=== PATIENT | female | born 1980 | race Caucasian/White ===

== ENCOUNTER 2022-04-23 04:16 | Day surgery (SDC) | payer BC ==
[2022-04-22 14:00] VITALS: BMI 25.4
[2022-04-23] MEDS ORDERED: PROPOFOL 20 ML ONE ×2 (11:48→12:45)
[2022-04-23] MEDS ORDERED: MIDAZOLAM HCL 2 MG/2 ML SINGLE DOSE VIAL ONE (11:48)
[2022-04-23] MEDS ORDERED: ROCURONIUM BROMIDE 100 MG/10 ML VIAL ONE (11:48)
[2022-04-23] MEDS ORDERED: SUGAMMADEX SODIUM 200 MG/2 ML VIAL ONE (12:50)
[2022-04-23] MEDS ORDERED: ceFAZolin SODIUM 1 GM VIAL IVPB ONE (13:45)
[2022-04-23] MEDS ORDERED: ONDANSETRON 4 MG/2 ML VIAL IVPUSH PRN (14:42)
[2022-04-23] MEDS ORDERED: FENTANYL CITRATE/PF 50 MCG/ML VIAL ONE ×3 (14:48→16:00)
[2022-04-23] MEDS ORDERED: oxyCODONE HCL 5 MG TABLET PO PRN (16:51)
[2022-04-23] MEDS ORDERED: ONDANSETRON 4 MG/2 ML VIAL ONE (17:33)
[2022-04-23 18:59] VITALS: BP 142/68; PULSE 60; TEMP 98
== END 2022-04-23 18:30 | disposition home or self-care (01) ==
LOC: JASU-SURG 04:16
PROVIDERS: ATTEND Specialist
PROC: 0U5B8ZZ Destruction of Endometrium, Via Natural or Artificial Opening Endoscopic (ICD-10-PCS; principal; 2022-04-23 12:00)
PROC: 0UDB7ZZ Extraction of Endometrium, Via Natural or Artificial Opening (ICD-10-PCS; 2022-04-23 12:00)
PROC: 0UT74ZZ Resection of Bilateral Fallopian Tubes, Percutaneous Endoscopic Approach (ICD-10-PCS; 2022-04-23 12:00)
DX: Z30.2 Encounter for sterilization (principal); N92.0 Excessive and frequent menstruation with regular cycle
CPT/HCPCS: 81025; 88300-TC; 88302-TC; 88305-TC; 94760